=== PATIENT | female | born 1990 | race Two or more races ===

== ENCOUNTER 2022-01-12 17:43 | Inpatient (IN) | payer MEDICAID ==
[~2022-01-12] VITALS: Ht 170.2 cm; Wt 70.3 kg
[2022-01-12 18:33] LABS: BASOPHILS % 0.5 % (0.0-2.0); HEMATOCRIT. 38.5 % (36.0-48.0); HEMOGLOBIN. 12.7 g/dL (12.0-16.0); MEAN CORPUSCULAR HEMOGLOBIN 26.9 pg (28.0-32.0); MEAN CORPUSCULAR VOLUME 81.4 fL (81.0-99.0); MEAN PLATELET VOLUME 9.6 fl (7.4-10.4); NEUTROPHILS % 52.5 % (40.0-76.0); PLATELET 228 x1000/uL (130-400); RED BLOOD CELL COUNT 4.73 mill/uL (4.2-5.4); RED CELL DISTRIBUTION WIDTH 14.9 % (11.6-14.6)
[2022-01-12 18:38] LABS: CHLORIDE 107 mEq/L (98-107)
[2022-01-12 18:42] LABS: HCG SCREEN NEGATIVE
[2022-01-13] MEDS ORDERED: ONDANSETRON HCL 4MG/2ML INJ IV PRN (02:30)
[2022-01-13] MEDS ORDERED: CLONIDINE 0.1MG TABLET PO PRN (02:30)
[2022-01-13] MEDS ORDERED: ACETAMINOPHEN 325MG TABLET PO PRN (02:30)
[2022-01-13] MEDS ORDERED: HYDROCODONE/ACETAMINOPHEN 5/325MG TABLET PO PRN (02:30)
[2022-01-13] MEDS ORDERED: NALOXONE HCL 0.4 MG/ML 1ML VIAL IV PRN (02:45)
[2022-01-13 08:00] VITALS: BP 95/63
[2022-01-13] MEDS: NA PHOS,M-B/NA PHOS,DI-BA ENEMA 118ML PR PRN (09:01)
[2022-01-13 11:00] VITALS: BP 95/63
[2022-01-13 12:00] VITALS: BP 101/63
[2022-01-13] MEDS: ENOXAPARIN 40MG/0.4ML SYR SUBCUT SCH (18:23)
[2022-01-13] MEDS ORDERED: QUET100T MT (19:30)
[2022-01-13] MEDS ORDERED: SENN-178 MT (19:30)
[2022-01-13 20:00] VITALS: BP 90/54
[2022-01-14 04:00] VITALS: BP 95/43
[2022-01-14 08:00] VITALS: BP 102/60
[2022-01-14] MEDS: ENOXAPARIN 40MG/0.4ML SYR SUBCUT SCH (10:50)
[2022-01-14 15:52] LABS: BASOPHILS % 0.6 % (0.0-2.0); EOSINOPHILS % 3.1 % (0.0-5.0); HEMATOCRIT. 36.5 % (36.0-48.0); HEMOGLOBIN. 12.3 g/dL (12.0-16.0); LYMPHOCYTES % 45.5 % (20.0-50.0); MEAN CORPUSCULAR HEMOGLOBIN 27.1 pg (28.0-32.0); MEAN CORPUSCULAR VOLUME 80.6 fL (81.0-99.0); MEAN PLATELET VOLUME 9.7 fl (7.4-10.4); MONOCYTES % 9.2 % (2.0-8.0); NEUTROPHILS % 41.6 % (40.0-76.0); PLATELET 244 x1000/uL (130-400); RED BLOOD CELL COUNT 4.53 mill/uL (4.2-5.4); RED CELL DISTRIBUTION WIDTH 14.9 % (11.6-14.6)
[2022-01-14 16:00] VITALS: BP_SYST 100; BP_SYST 95; BP_DIAS 57; BP_DIAS 58
[2022-01-14 16:03] LABS: CHLORIDE 104 mEq/L (98-107)
[2022-01-14 20:00] VITALS: BP 102/66
[2022-01-15] VITALS: BP 101/56
[2022-01-15 04:00] VITALS: BP 103/66
[2022-01-15] MEDS: ENOXAPARIN 40MG/0.4ML SYR SUBCUT SCH (12:15)
[2022-01-15 12:51] VITALS: BP 107/68
[2022-01-15 16:00] VITALS: BP 99/64
[2022-01-15 20:00] VITALS: BP 100/66
[2022-01-16] VITALS: BP 130/98
[2022-01-16 04:00] VITALS: BP 119/83
[2022-01-16 08:00] VITALS: BP 114/74
[2022-01-16 12:00] VITALS: BP 90/57
[2022-01-16] MEDS: ENOXAPARIN 40MG/0.4ML SYR SUBCUT SCH (12:40)
[2022-01-16 16:00] VITALS: BP 108/61
[2022-01-16 20:00] VITALS: BP 96/50
[2022-01-17] VITALS: BP 97/60
[2022-01-17 04:00] VITALS: BP 95/50
[2022-01-17 08:00] VITALS: BP 105/70
[2022-01-17] MEDS: NA PHOS,M-B/NA PHOS,DI-BA ENEMA 118ML PR PRN (09:34)
[2022-01-17] MEDS: ENOXAPARIN 40MG/0.4ML SYR SUBCUT SCH (11:06)
[2022-01-17 12:00] VITALS: BP 100/67
[2022-01-17 16:28] VITALS: BP 97/50
[2022-01-17] MEDS: DOCUSATE SODIUM 100MG CAPSULE PO PRN (17:36)
[2022-01-17 20:00] VITALS: BP 94/50
[2022-01-18] VITALS: BP 95/50
[2022-01-18 04:00] VITALS: BP 92/50
[2022-01-18] MEDS: ENOXAPARIN 40MG/0.4ML SYR SUBCUT SCH (11:26)
[2022-01-18] MEDS: DOCUSATE SODIUM 100MG CAPSULE PO PRN (11:26)
[2022-01-18 12:00] VITALS: BP 114/67
[2022-01-18] MEDS: IPRATROPIUM/ALBUTEROL 0.5-3(2.5)MG/3ML NEB HHN PRN (14:18)
[2022-01-18 16:00] VITALS: BP 138/78
[2022-01-19] MEDS: ENOXAPARIN 40MG/0.4ML SYR SUBCUT SCH (11:00)
[2022-01-19 20:00] VITALS: BP 97/40
[2022-01-20] MEDS: ENOXAPARIN 40MG/0.4ML SYR SUBCUT SCH ×2 (11:00→11:35)
[2022-01-20 16:00] VITALS: BP 127/93
[2022-01-20 20:00] VITALS: BP 101/65
[2022-01-21] VITALS: BP 110/67
[2022-01-21 04:00] VITALS: BP 95/65
[2022-01-21] MEDS: ENOXAPARIN 40MG/0.4ML SYR SUBCUT SCH (10:48)
[2022-01-21 12:00] VITALS: BP 104/69
[2022-01-21 16:00] VITALS: BP 90/41
[2022-01-21 20:00] VITALS: BP 91/53
[2022-01-22 08:00] VITALS: BP 93/40
[2022-01-22] MEDS: ENOXAPARIN 40MG/0.4ML SYR SUBCUT SCH (11:28)
[2022-01-22 16:00] VITALS: BP 126/75
[2022-01-22 20:00] VITALS: BP 76/41
[2022-01-23] VITALS: BP 82/93
[2022-01-23 04:00] VITALS: BP 106/67
[2022-01-23 08:00] VITALS: BP 99/45
[2022-01-23] MEDS: MIDODRINE HCL 5MG TABLET PO SCH ×3 (09:00→17:00)
[2022-01-23] MEDS: ENOXAPARIN 40MG/0.4ML SYR SUBCUT SCH (10:12)
[2022-01-23] MEDS: NA PHOS,M-B/NA PHOS,DI-BA ENEMA 118ML PR PRN (10:13)
[2022-01-23 20:00] VITALS: BP 83/43
[2022-01-24] VITALS: BP 135/85
[2022-01-24] MEDS: MIDODRINE HCL 5MG TABLET PO SCH ×3 (09:00→17:00)
[2022-01-24] MEDS: ENOXAPARIN 40MG/0.4ML SYR SUBCUT SCH (11:00)
[2022-01-24 12:00] VITALS: BP 97/59
[2022-01-24 16:00] VITALS: BP 77/43
[2022-01-25 04:00] VITALS: BP 92/35
[2022-01-25] MEDS: MIDODRINE HCL 5MG TABLET PO SCH ×3 (09:00→17:00)
[2022-01-25] MEDS: ENOXAPARIN 40MG/0.4ML SYR SUBCUT SCH (11:00)
[2022-01-25 20:00] VITALS: BP 92/53
[2022-01-26] MEDS: MIDODRINE HCL 5MG TABLET PO SCH ×3 (09:07→17:00)
[2022-01-26] MEDS: ENOXAPARIN 40MG/0.4ML SYR SUBCUT SCH (11:00)
[2022-01-26] MEDS: DOCUSATE SODIUM 100MG CAPSULE PO PRN (16:55)
[2022-01-26] MEDS: NA PHOS,M-B/NA PHOS,DI-BA ENEMA 118ML PR PRN (17:01)
[2022-01-27] MEDS: MIDODRINE HCL 5MG TABLET PO SCH ×3 (09:00→17:00)
[2022-01-27] MEDS: ENOXAPARIN 40MG/0.4ML SYR SUBCUT SCH (11:00)
[2022-01-27 16:00] VITALS: BP 87/52
[2022-01-27 20:00] VITALS: BP 101/58
[2022-01-28] MEDS: MIDODRINE HCL 5MG TABLET PO SCH ×3 (09:00→17:00)
[2022-01-28 11:17] LABS: HEMATOCRIT 35.3 % (36.0-48.0); HEMOGLOBIN 12.1 g/dL (12.0-16.0); MEAN CORPUSCULAR HEMOGLOBIN 27.8 pg (28.0-32.0); PLATELET 236 x1000/uL (130-400); RED BLOOD CELL COUNT 4.35 mill/uL (4.2-5.4); RED CELL DISTRIBUTION WIDTH 15.4 % (11.6-14.6)
[2022-01-28] MEDS: ENOXAPARIN 40MG/0.4ML SYR SUBCUT SCH (11:24)
[2022-01-28 11:35] LABS: CHLORIDE 106 mEq/L (98-107)
[2022-01-28 20:00] VITALS: BP 102/68
[2022-01-29] MEDS: IPRATROPIUM/ALBUTEROL 0.5-3(2.5)MG/3ML NEB HHN PRN (09:18)
[2022-01-29 12:00] VITALS: BP 98/60
[2022-01-29] MEDS: ENOXAPARIN 40MG/0.4ML SYR SUBCUT SCH (12:47)
[2022-01-29 20:00] VITALS: BP_SYST 112; BP_SYST 78; BP_DIAS 47; BP_DIAS 72
[2022-01-29] MEDS: DOCUSATE SODIUM 100MG CAPSULE PO PRN (22:05)
[2022-01-30] MEDS: ENOXAPARIN 40MG/0.4ML SYR SUBCUT SCH (11:16)
[2022-01-30 12:00] VITALS: BP 83/48
[2022-01-30 16:00] VITALS: BP 82/40
[2022-01-30 20:00] VITALS: BP 89/48
[2022-01-31 08:00] VITALS: BP 84/51
[2022-01-31] MEDS: ENOXAPARIN 40MG/0.4ML SYR SUBCUT SCH (11:09)
[2022-01-31 12:00] VITALS: BP 87/46
[2022-01-31 16:00] VITALS: BP 90/50
[2022-02-01] VITALS: BP 121/37
[2022-02-01 04:00] VITALS: BP 88/46
[2022-02-01] MEDS: ENOXAPARIN 40MG/0.4ML SYR SUBCUT SCH (11:09)
[2022-02-01 12:00] VITALS: BP 84/45
[2022-02-01 16:00] VITALS: BP 103/63
[2022-02-01 20:00] VITALS: BP 93/58
[2022-02-02 08:00] VITALS: BP 131/63
[2022-02-02] MEDS: ENOXAPARIN 40MG/0.4ML SYR SUBCUT SCH (11:03)
[2022-02-02 12:00] VITALS: BP 127/70
[2022-02-02 20:00] VITALS: BP 93/47
[2022-02-03] MEDS: ENOXAPARIN 40MG/0.4ML SYR SUBCUT SCH (11:27)
[2022-02-03 12:00] VITALS: BP 80/54
[2022-02-03 16:00] VITALS: BP 92/51
[2022-02-03 20:00] VITALS: BP 83/49
[2022-02-04 08:00] VITALS: BP 81/47
[2022-02-04] MEDS: ENOXAPARIN 40MG/0.4ML SYR SUBCUT SCH ×2 (10:01→21:00)
[2022-02-04 16:00] VITALS: BP 88/51
[2022-02-04 20:00] VITALS: BP 94/52
[2022-02-05 04:00] VITALS: BP 108/59
[2022-02-05 08:00] VITALS: BP 101/62
[2022-02-05 12:00] VITALS: BP 94/50
[2022-02-05 16:23] LABS: BASOPHILS % 0.4 % (0.0-2.0); EOSINOPHILS % 2.5 % (0.0-5.0); HEMATOCRIT. 37.1 % (36.0-48.0); HEMOGLOBIN. 12.3 g/dL (12.0-16.0); LYMPHOCYTES % 33.1 % (20.0-50.0); MEAN CORPUSCULAR HEMOGLOBIN 27.3 pg (28.0-32.0); MEAN CORPUSCULAR VOLUME 82.1 fL (81.0-99.0); MEAN PLATELET VOLUME 9.6 fl (7.4-10.4); MONOCYTES % 7.2 % (2.0-8.0); NEUTROPHILS % 56.8 % (40.0-76.0); PLATELET 244 x1000/uL (130-400); RED BLOOD CELL COUNT 4.51 mill/uL (4.2-5.4); RED CELL DISTRIBUTION WIDTH 15.7 % (11.6-14.6)
[2022-02-05 16:40] LABS: CHLORIDE 108 mEq/L (98-107)
[2022-02-05 20:00] VITALS: BP 101/66
[2022-02-05] MEDS: ENOXAPARIN 40MG/0.4ML SYR SUBCUT SCH (20:12)
[2022-02-06 08:00] VITALS: BP 109/57
[2022-02-06 09:42] VITALS: BP 109/57
[2022-02-06 12:00] VITALS: BP 104/38
[2022-02-06 16:00] VITALS: BP 118/55
[2022-02-06 20:00] VITALS: BP 100/68
[2022-02-07] VITALS: BP 94/44
[2022-02-07 16:00] VITALS: BP 83/44
[2022-02-08 08:00] VITALS: BP 85/54
[2022-02-08 12:00] VITALS: BP 90/53
[2022-02-08 16:00] VITALS: BP 90/46
[2022-02-08] MEDS: ENOXAPARIN 40MG/0.4ML SYR SUBCUT SCH (20:21)
[2022-02-09 16:00] VITALS: BP 97/55
[2022-02-09 20:00] VITALS: BP 90/47
[2022-02-09] MEDS: ENOXAPARIN 40MG/0.4ML SYR SUBCUT SCH (21:00)
[2022-02-10 04:00] VITALS: BP 99/59
[2022-02-10 08:00] VITALS: BP 94/52
[2022-02-10 12:00] VITALS: BP 103/78
[2022-02-10 16:00] VITALS: BP 94/33
[2022-02-10 20:00] VITALS: BP 97/49
[2022-02-10] MEDS: ENOXAPARIN 40MG/0.4ML SYR SUBCUT SCH (21:00)
[2022-02-11] MEDS ORDERED: ACETAMINOPHEN 325MG TABLET PO PRN (01:45)
[2022-02-11] MEDS ORDERED: NA PHOS,M-B/NA PHOS,DI-BA ENEMA 118ML PR PRN (01:45)
[2022-02-11] MEDS ORDERED: DOCUSATE SODIUM 100MG CAPSULE PO PRN (01:45)
[2022-02-11] MEDS ORDERED: ONDANSETRON HCL 4MG/2ML INJ IV PRN (01:45)
[2022-02-11] MEDS ORDERED: CLONIDINE 0.1MG TABLET PO PRN (01:45)
[2022-02-11 04:00] VITALS: BP 97/62
[2022-02-11 12:00] VITALS: BP 97/43
[2022-02-11] MEDS: ENOXAPARIN 40MG/0.4ML SYR SUBCUT SCH (21:00)
[2022-02-12 08:04] VITALS: BP 89/46
[2022-02-12 11:58] VITALS: BP 86/42
[2022-02-12 15:54] VITALS: BP 73/44
[2022-02-12 20:00] VITALS: BP 86/59
[2022-02-12] MEDS: ENOXAPARIN 40MG/0.4ML SYR SUBCUT SCH (20:35)
[2022-02-13 20:00] VITALS: BP 108/54
[2022-02-13] MEDS: ENOXAPARIN 40MG/0.4ML SYR SUBCUT SCH (23:04)
[2022-02-14 12:00] VITALS: BP 85/44
[2022-02-14 16:00] VITALS: BP 90/43
[2022-02-14] MEDS: ENOXAPARIN 40MG/0.4ML SYR SUBCUT SCH (21:00)
[2022-02-15] VITALS: BP 97/54
[2022-02-15 16:00] VITALS: BP 85/57
[2022-02-15] MEDS: ENOXAPARIN 40MG/0.4ML SYR SUBCUT SCH (20:39)
[2022-02-16 20:00] VITALS: BP 84/55
[2022-02-16] MEDS: ENOXAPARIN 40MG/0.4ML SYR SUBCUT SCH (21:00)
[2022-02-17 12:00] VITALS: BP 87/46
[2022-02-17 16:00] VITALS: BP 98/53
[2022-02-17] MEDS: ENOXAPARIN 40MG/0.4ML SYR SUBCUT SCH (21:04)
[2022-02-18 08:00] VITALS: BP 96/50
[2022-02-18 12:00] VITALS: BP 97/52
[2022-02-18] MEDS: ENOXAPARIN 40MG/0.4ML SYR SUBCUT SCH (21:00)
[2022-02-19 16:00] VITALS: BP 97/53
[2022-02-19 20:00] VITALS: BP 99/56
[2022-02-19] MEDS: ENOXAPARIN 40MG/0.4ML SYR SUBCUT SCH (21:00)
[2022-02-20] VITALS: BP 97/55
[2022-02-20] MEDS: ENOXAPARIN 40MG/0.4ML SYR SUBCUT SCH (21:00)
[2022-02-21] MEDS ORDERED: IPRATROPIUM/ALBUTEROL 0.5-3(2.5)MG/3ML NEB HHN PRN (05:15)
[2022-02-21 08:00] VITALS: BP 104/66
[2022-02-21] MEDS: ENOXAPARIN 40MG/0.4ML SYR SUBCUT SCH ×2 (21:00→21:38)
[2022-02-22 08:00] VITALS: BP 101/50
[2022-02-22 12:00] VITALS: BP 98/55
[2022-02-22 16:00] VITALS: BP 105/75
[2022-02-22] MEDS: ENOXAPARIN 40MG/0.4ML SYR SUBCUT SCH (21:00)
[2022-02-23 05:59] LABS: CHLORIDE 109 mEq/L (98-107)
[2022-02-23 06:16] LABS: HEMATOCRIT 36.1 % (36.0-48.0); HEMOGLOBIN 12.2 g/dL (12.0-16.0); MEAN CORPUSCULAR HEMOGLOBIN 27.3 pg (28.0-32.0); MEAN CORPUSCULAR VOLUME 80.9 fL (81.0-99.0); PLATELET 189 x1000/uL (130-400); RED BLOOD CELL COUNT 4.46 mill/uL (4.2-5.4); RED CELL DISTRIBUTION WIDTH 15.1 % (11.6-14.6)
[2022-02-23 08:00] VITALS: BP 108/64
[2022-02-23] MEDS: ENOXAPARIN 40MG/0.4ML SYR SUBCUT SCH ×3 (20:09→22:47)
[2022-02-24] MEDS: ENOXAPARIN 40MG/0.4ML SYR SUBCUT SCH (00:02)
[2022-02-24 11:48] VITALS: BP 80/51
[2022-02-24 15:59] VITALS: BP 99/56
[2022-02-24 20:00] VITALS: BP 97/53
[2022-02-25 08:00] VITALS: BP 108/66
[2022-02-25 12:00] VITALS: BP 78/40
[2022-02-25 16:00] VITALS: BP 121/51
[2022-02-25] MEDS: ENOXAPARIN 40MG/0.4ML SYR SUBCUT SCH (21:00)
[2022-02-26 16:00] VITALS: BP 87/52
[2022-02-26] MEDS: ENOXAPARIN 40MG/0.4ML SYR SUBCUT SCH (21:00)
[2022-02-27 16:00] VITALS: BP 105/72
[2022-02-27] MEDS: ENOXAPARIN 40MG/0.4ML SYR SUBCUT SCH (21:00)
[2022-02-28 20:00] VITALS: BP 104/62
[2022-02-28] MEDS: ENOXAPARIN 40MG/0.4ML SYR SUBCUT SCH (21:00)
[2022-03-01 04:00] VITALS: BP 109/60
[2022-03-01 08:00] VITALS: BP 107/43
[2022-03-01 12:00] VITALS: BP 112/57
[2022-03-01] MEDS: ENOXAPARIN 40MG/0.4ML SYR SUBCUT SCH (21:00)
[2022-03-02 08:00] VITALS: BP 106/58
[2022-03-02] MEDS ORDERED: ONDANSETRON HCL 4MG TABLET PO PRN (11:15)
[2022-03-02 12:00] VITALS: BP_SYST 101; BP_SYST 102; BP_DIAS 56; BP_DIAS 75
[2022-03-02 16:00] VITALS: BP 115/67
[2022-03-02] MEDS: ALBUTEROL 6.7GM HFA INHALER ORI PRN (16:37)
[2022-03-02] MEDS: ENOXAPARIN 40MG/0.4ML SYR SUBCUT SCH (21:00)
[2022-03-03 16:00] VITALS: BP 104/50
[2022-03-03 20:00] VITALS: BP 100/67
[2022-03-03] MEDS: ENOXAPARIN 40MG/0.4ML SYR SUBCUT SCH (21:00)
[2022-03-04] MEDS: ENOXAPARIN 40MG/0.4ML SYR SUBCUT SCH (01:01)
[2022-03-04 08:00] VITALS: BP 103/58
[2022-03-04] MEDS ORDERED: NA PHOS,M-B/NA PHOS,DI-BA ENEMA 118ML PR NR (11:45)
[2022-03-04 12:00] VITALS: BP 90/64
[2022-03-05 16:00] VITALS: BP 98/64
[2022-03-05 20:00] VITALS: BP 81/48
[2022-03-05] MEDS: ENOXAPARIN 40MG/0.4ML SYR SUBCUT SCH (20:47)
[2022-03-06 04:00] VITALS: BP 82/49
[2022-03-06 12:00] VITALS: BP 100/51
[2022-03-06] MEDS: ENOXAPARIN 40MG/0.4ML SYR SUBCUT SCH (21:00)
[2022-03-07] MEDS ORDERED: NA PHOS,M-B/NA PHOS,DI-BA ENEMA 118ML PR PRN (18:00)
[2022-03-07 20:00] VITALS: BP 91/50
[2022-03-07] MEDS: ENOXAPARIN 40MG/0.4ML SYR SUBCUT SCH (21:00)
[2022-03-08 12:00] VITALS: BP 95/59
[2022-03-08 14:57] VITALS: BP 95/59
[2022-03-08] MEDS: ALBUTEROL 6.7GM HFA INHALER ORI PRN (17:27)
[2022-03-08] MEDS: ENOXAPARIN 40MG/0.4ML SYR SUBCUT SCH (21:00)
[2022-03-09 16:00] VITALS: BP 95/53
[2022-03-10 08:00] VITALS: BP 90/55
[2022-03-10 12:00] VITALS: BP 97/55
[2022-03-10 16:00] VITALS: BP 90/53
[2022-03-10 20:00] VITALS: BP 99/51
[2022-03-10] MEDS: ENOXAPARIN 40MG/0.4ML SYR SUBCUT SCH (21:00)
[2022-03-11 08:00] VITALS: BP 94/62
[2022-03-11 12:00] VITALS: BP 90/58
[2022-03-11 16:00] VITALS: BP 99/50
[2022-03-11] MEDS: ENOXAPARIN 40MG/0.4ML SYR SUBCUT SCH (21:00)
[2022-03-12 12:00] VITALS: BP 106/71
[2022-03-12 16:00] VITALS: BP 85/46
[2022-03-12 20:00] VITALS: BP 101/60
[2022-03-12] MEDS: ENOXAPARIN 40MG/0.4ML SYR SUBCUT SCH (21:00)
[2022-03-13 06:00] VITALS: BP 99/53
[2022-03-13 09:58] VITALS: BP 89/40
== END 2022-03-13 12:01 | DRG 254 ==
LOC: ER 17:43 → MICUSO 20:07 → EDBEDREQ 20:20 → EDBEDREQTM 20:20 → 5WST 01-13 10:05 → 6EST 01-15 12:42 → UNDODISIN 01-15 15:10
PROVIDERS: ADMIT Hospitalist; ATTEND Hospitalist
DX: K59.00 Constipation, unspecified (principal); L89.153 Pressure ulcer of sacral region, stage 3; G82.20 Paraplegia, unspecified; E46 Unspecified protein-calorie malnutrition; T25.212A Burn of second degree of left ankle, initial encounter; J45.909 Unspecified asthma, uncomplicated; Z20.822 Contact with and (suspected) exposure to COVID-19; S91.012A Laceration without foreign body, left ankle, initial encounter; X08.8XXA Exposure to other specified smoke, fire and flames, initial encounter; Y93.89 Activity, other specified; Y92.89 Other specified places as the place of occurrence of the external cause; Y99.8 Other external cause status
CPT/HCPCS: 36415; 71045; 80048; 80053; 84703; 85025; 85027; 87426; 93005; 94640; 97110; 97112; 97162; 97164; 97166; 97530; 99285; A4565; A6261; J1650